=== PATIENT | female | born 1995 | race Two or more races ===

== ENCOUNTER 2017-09-13 08:52 | Emergency (ER) | payer MEDICAID ==
[~2017-09-13] VITALS: Ht 165.1 cm; Wt 70.0 kg
[2017-09-13 10:25] LABS: BASOPHILS % 0.7 % (0.0-2.0); CHLORIDE 106 mEq/L (98-107); EOSINOPHILS % 3.3 % (0.0-5.0); HEMATOCRIT. 40.3 % (36.0-48.0); LYMPHOCYTES % 21.2 % (20.0-50.0); MEAN CORPUSCULAR HEMOGLOBIN 27.4 pg (28.0-32.0); MONOCYTES % 6.5 % (2.0-8.0); NEUTROPHILS % 68.3 % (40.0-76.0); PLATELET 215 x1000/uL (130-400); RED BLOOD CELL COUNT 4.74 mill/uL (4.2-5.4); RED CELL DISTRIBUTION WIDTH 13.2 % (11.6-14.6)
[2017-09-13 10:30] LABS: INR 1.1; PROTHROMBIN TIME 11.2 sec (9.4-11.6)
[2017-09-13 10:42] LABS: CARBON DIOXIDE 28 mEq/L (21-32)
[2017-09-13 12:25] VITALS: BP 110/66
== END 2017-09-13 12:37 | disposition home or self-care (01) ==
LOC: ER 09:29
DX: R10.84 Generalized abdominal pain (principal); R19.7 Diarrhea, unspecified; F41.9 Anxiety disorder, unspecified; J45.909 Unspecified asthma, uncomplicated; Z90.49 Acquired absence of other specified parts of digestive tract
CPT/HCPCS: 36415; 80053; 81025; 83690; 85025; 85610; 99284

== ENCOUNTER 2018-12-14 23:18 | Emergency (ER) | payer MEDICAID ==
[~2018-12-14] VITALS: Ht 152.4 cm; Wt 73.1 kg
[2018-12-15] MEDS ORDERED: LIDOCAINE HCL/PF 1% 10 MG/ML 5ML VIAL IJ SCH (00:15)
[2018-12-15] MEDS ORDERED: LIDOCAINE HCL/PF 1% 2ML VIAL INFIL ONE (00:15)
[2018-12-15 00:42] VITALS: BP 113/73
== END 2018-12-15 00:42 | disposition home or self-care (01) ==
LOC: ER 23:18
DX: L02.416 Cutaneous abscess of left lower limb (principal); J45.909 Unspecified asthma, uncomplicated; Z90.49 Acquired absence of other specified parts of digestive tract
CPT/HCPCS: 10060; 99283; A4217; J3490; Z7610

== ENCOUNTER 2018-12-16 10:05 | Emergency (ER) | payer MEDICAID ==
[~2018-12-16] VITALS: Ht 152.4 cm; Wt 75.0 kg
[2018-12-16] MEDS ORDERED: BACITRACIN ZINC OINT UDPKT TOP ONE (13:00)
[2018-12-16 13:29] VITALS: BP 125/62
== END 2018-12-16 13:31 | disposition home or self-care (01) ==
LOC: ER 10:27
DX: L02.416 Cutaneous abscess of left lower limb (principal); J45.909 Unspecified asthma, uncomplicated; Z90.89 Acquired absence of other organs
CPT/HCPCS: 81025; 99282

== ENCOUNTER 2024-07-04 20:09 | Emergency (ER) | payer MEDICAID ==
[~2024-07-04] VITALS: Ht 165.1 cm; Wt 69.0 kg
[2024-07-04 20:13] VITALS: TEMP 97.8; O2SAT 99
[2024-07-05] MEDS: KETOROLAC 15MG/ML VIAL IM ONE (00:38)
[2024-07-05] MEDS ORDERED: LIDO700A15 TP (00:50)
[2024-07-05] MEDS ORDERED: NAPR-1176 MT (00:50)
[2024-07-05 01:31] VITALS: BP 104/62; PULSE 62; RESP 18; O2SAT 100
== END 2024-07-05 01:32 | disposition home or self-care (01) ==
LOC: ER 20:09
DX: M25.562 Pain in left knee (principal); J45.909 Unspecified asthma, uncomplicated; Z90.49 Acquired absence of other specified parts of digestive tract
CPT/HCPCS: 99283; 81025; 73562; 96372; J1885